=== PATIENT | male | born 1990 | race Caucasian/White ===

== ENCOUNTER 2020-12-05 18:46 | Emergency (ER) | payer OTHER, SELFPAY | END 2020-12-05 19:00 | disposition left against medical advice (07) | PROVIDERS: Emergency Provider Emergency Medicine | DX: M79.602 Pain in left arm (principal) ==

== ENCOUNTER 2023-10-01 22:43 | Emergency (ER) | payer OTHER, SELFPAY ==
--- NOTE | ~2023-10-01 | XR_ITS ---
EXAMINATION: XR CHEST CLINICAL INFORMATION: Cough. COMPARISON: Chest radiograph 12/09/2016. TECHNIQUE: 2 views of the chest were obtained. FINDINGS: New 0.8 cm nodular-like opacity projecting over the right upper lobe at the level of the posterior sixth rib. No focal consolidation, pleural effusion or pneumothorax. Normal appearance of the cardiomediastinal silhouette. No acute osseous findings. XR/XR chest 2V IMPRESSION: 1. New 0.8 cm nodular-like opacity projecting over the right upper lobe, possibly a granuloma. Recommend further evaluation with a nonemergent chest CT. 2. No focal consolidation, pleural effusion or pneumothorax. 3. No acutely displaced rib fractures.
[2023-10-01 22:47] VITALS: BP 151/91; PULSE 81; O2SAT 98
[2023-10-01 22:48] VITALS: BP 135/92; PULSE 90; RESP 20; TEMP 36.7; O2SAT 96; BMI 21.3
--- NOTE | 2023-10-01 23:58 | ED.URI ---
HPI - URI/Sore Throat General Chief Complaint: Upper Respiratory Symptoms Stated Complaint: flu like symptoms x1day Time Seen by Provider: 10/01/23 23:12 Source: patient Mode of arrival: ambulatory Limitations: no limitations History of Present Illness HPI Narrative: Patient is a 33-year-old male who presents emergency department for evaluation of shortness of breath and a cough. Reports onset 2 hours prior to arrival. He reports a remote history of childhood asthma, but has not bothered him in many years and he has not required any inhalers since then. He denies any new foods or potential environmental allergens that may have precipitated these symptoms. He does report having been around others who have been ill recently. He denies fevers, chills, sore throat, ear pain, chest pain, numbness or tingling of the extremities. Related Data Previous Rx's Medication Instructions Recorded albuterol sulfate 90 mcg/actuation 2 puff inhalation Q4-6H PRN 10/02/23 aerosol inhaler shortness of breath or wheezing #6.7 grams Allergies Allergy/AdvReac Type Severity Reaction Status Date / Time No Known Allergies Allergy Unverified 05/17/20 16:07 [No Known Allergies*] Review of Systems Review of Systems: Yes all other systems are reviewed and are negative PMFSH Past Medical History Attestation statement: The following information was validated with the patient. Source: old records reviewed Social History Social History Smoked in Last 30 Days: No Use of substances other than those prescribed or required for medical reasons: No Advance Directives: No Advance Directives Information Provided: Yes Physical Exam Vital Signs: Vital Signs: Last Vital Signs Temp 98.1 F 10/01/23 22:48 Pulse 90 10/01/23 22:48 Resp 20 10/01/23 22:48 BP 135/92 H 10/01/23 22:48 Pulse Ox 96 10/01/23 22:48 O2 Del Method Room Air 10/01/23 22:48 BMI result Body Mass Index 21.3 Appearance: Alert.?Oriented to person, place and time. No acute distress.?Normal affect. Eyes: Pupils equal, round and reactive to light.? ENT: TM normal bilaterally. Pharynx normal.?? Neck: Normal inspection.? Neck supple.??No cervical adenopathy CVS: Heart sounds normal. Normal heart rate and rhythm.? Pulses normal.?? Respiratory: No respiratory distress.? Lung sounds clear to auscultation bilaterally?? Abdomen: Soft and non-tender. Normoactive bowel sounds. Skin: Skin warm and dry.? Normal skin color.? ? Extremities: No lower extremity edema.? Neuro: Moves all extremities spontaneously. Sensation intact bilaterally. No motor deficits. Ambulates with normal steady gait. Medical Decision Making Medical Decision Making [facility] Narrative: Patient is a 33-year-old male presenting for evaluation of cough and shortness of breath. COVID-19 /influenza testing negative. At this time history and physical exam not consistent with ACS/PE/pneumonia. CXR with incidental finding of lung nodule, do not suspect this is the etiology for his symptoms today, discussed outpatient follow-up with PCP. Well-appearing, nontoxic, afebrile, no tachycardia or tachypnea/hypoxia. Speaking clear full sentences, ambulatory with steady gait. Albuterol inhaler as needed for shortness of breath. Discussed conservative treatment including rest, hydration, Tylenol/ibuprofen as needed for fever and body aches, saline nasal spray, humidifier, [id number] cold medication. Advised to follow-up with primary care provider as needed, discussed reasons to return back to the emergency department. All questions were answered. Patient discharged home in stable condition. Differential Diagnosis Differential Diagnoses: The differential diagnosis associated with the presentation includes ( See narrative above) Admission/Observation Consideration of admission/observation: Escalation of care including admission/observation considered ( see narrative above) Lab Data [facility] Lab Attestation statement: I reviewed the patient's lab results. ( see narrative above) Labs: Lab Results 10/01/23 Range/Units 23:27 COVID-19 ([facility]) Negative (Negative) COVID-19 Clin Com See Note Influenza Type A ([facility]) Negative (Negative) Influenza Type B ([facility]) Negative (Negative) Influenza A & B Note See Note Independent Interpretation I performed an independent interpretation of an: Plain X-Ray (Personally interpreted chest x-ray and agree with radiologist impression) Radiology Impression Discussion of test interpretation with radiology: I have reviewed the radiologist's reading. Radiologist Impression: XR/XR chest 2V IMPRESSION: 1. New 0.8 cm nodular-like opacity projecting over the right upper lobe, possibly a granuloma. Recommend further evaluation with a nonemergent chest CT. 2. No focal consolidation, pleural effusion or pneumothorax. 3. No acutely displaced rib fractures. Prescription Management I considered prescription management with: Pain Medication ( acetaminophen/ibuprofen) and Other (Albuterol inhaler) Discharge Plan Discharge Clinical Impression: Upper respiratory infection, Lung nodule Patient Disposition: Home, Self-Care Instructions: Upper Respiratory Infection (ED), Pulmonary Nodules (ED) Additional Instructions: You can take ibuprofen 200 mg, 3 tablets (600mg) every 6-8 hours as needed for pain, in addition to Tylenol 500 mg, 2 tablets (1,000mg) every 4-6 hours as needed for pain, but not to exceed 3 doses daily (3,000mg).? Use albuterol inhaler as needed for shortness of breath COVID-19 and flu testing today are negative, if your symptoms persist over the next couple of days that would consider retesting. The x-ray of your chest does not show any evidence of pneumonia. There was an incidental finding of a nodule in your lung, it is unlikely that your symptoms are due to this, however you should arrange a follow-up with primary care doctor for further evaluation, they may consider a CT scan of your chest. You may return back to emergency department any new worsening symptoms or concerns. Prescriptions: New albuterol sulfate 90 mcg/actuation HFA aerosol inhaler 2 puff inhalation Q4-6H PRN (Reason: shortness of breath or wheezing) Qty: 6.7 0RF Referrals: Physician,Unknown J [Primary Care Provider] -
[2023-10-02 00:06] LABS: COVID-19 Test Negative (Negative); IDNOW Serial# 08D9AD1C; IDNOW Serial# 152EDE1D; Influenza A Negative (Negative); Influenza B2 Negative (Negative)
[2023-10-02] MEDS: Albuterol Sulfate 90 MCG 8 GM INHALER 2 PUFF INHALE (00:31)
== END 2023-10-02 00:38 | disposition home or self-care (01) ==
PROVIDERS: Emergency Provider Student in an Organized Health Care Education/Training Program
DX: J06.9 Acute upper respiratory infection, unspecified (principal); R91.1 Solitary pulmonary nodule; Z11.52 Encounter for screening for COVID-19; R06.02 Shortness of breath; R05.9 Cough, unspecified
CPT/HCPCS: 71046; 87502; 87635; 99284

== ENCOUNTER 2023-10-02 22:32 | Emergency (ER) | payer OTHER, SELFPAY ==
[2023-10-02 23:43] VITALS: BP 130/74; PULSE 70; RESP 18; TEMP 36.9; O2SAT 98; BMI 21.7
--- NOTE | 2023-10-03 | ECG_ITS ---
Test Reason : SOB Blood Pressure : / mmHG Vent. Rate : 065 BPM Atrial Rate : 065 BPM P-R Int : 120 ms QRS Dur : 090 ms QT Int : 390 ms P-R-T Axes : 034 073 043 degrees QTc Int : 405 ms Normal sinus rhythm Normal ECG When compared with ECG of 25-MAY-2013 21:57, Nonspecific T wave abnormality, improved in Anterior leads Referred By: Kalpana Golden Electronically Signed By:CORIN MAYO MD
[2023-10-03 00:12] VITALS: BP 129/90; PULSE 64; RESP 20; TEMP 37; O2SAT 99
--- NOTE | 2023-10-03 00:33 | ED_ITS ---
HPI - URI/Sore Throat General Chief Complaint: Upper Respiratory Symptoms Stated Complaint: Reproductive cough, bronchitis Time Seen by Provider: 10/03/23 00:14 Source: patient and old records reviewed Mode of arrival: EMS Limitations: no limitations History of Present Illness HPI Narrative: 33 yo male with PMH of asthma here with URI symptoms and slight wheeze but asking for food no fevers he is not toxic and doesn't know how to use inhaler states there's just chemicals going into my mouth MD elicited complaint: cough Pertinent past history: asthma Onset (ago): day(s) (2) Consistency: intermittent Severity: mild Description of mucous: clear Able to tolerate fluids by mouth: Yes Exacerbating factors: other (cough) Relieving factors: nothing Associated symptoms: cough Treatments prior to arrival: other (tried INH) Related Data Previous Rx's Medication Instructions Recorded albuterol sulfate 90 mcg/actuation 2 puff inhalation Q4-6H PRN 10/02/23 aerosol inhaler shortness of breath or wheezing #6.7 grams albuterol sulfate 90 mcg/actuation 2 puff inhalation QID PRN 10/03/23 aerosol inhaler shortness of breath or wheezing #8.5 grams prednisone 20 mg tablet 40 mg (2 x 20 mg) PO DAILY 4 days 10/03/23 #8 tabs Allergies Allergy/AdvReac Type Severity Reaction Status Date / Time No Known Allergies Allergy Verified 10/02/23 23:42 [No Known Allergies*] Review of Systems Review of Systems: Constitutional : No Fever, No Chills ENT/Mouth : No Hoarseness, No sore throat, No Rhinorrhea Eyes: No Redness, No Discharge, No Vision Changes Cardiovascular : No Chest Pain, positive SOB, positive Dyspnea on Exertion, No Edema Respiratory : positive Cough, No Sputum, positive Wheezing, Gastrointestinal : No Nausea, No Vomiting, No Diarrhea, No abdominal Pain Genitourinary : No Dysuria, No Hematuria Musculoskeletal : No joint pain, No Myalgias Skin : No rash Neuro : No Weakness, No Numbness, No Headache Psych : No anxiety, depression Heme/Lymph: No Bruising, No Bleeding Endocrine : No Polyuria, No Polydipsia All other systems reviewed and are negative PMFSH Past Medical History Attestation statement: The following information was validated with the patient. Source: old records reviewed Medical History Asthma Social History Social History (Updated 10/03/23 @ 00:45 by Kalpana Golden DO) Patient Tobacco Use Status: Current everyday Tobacco user Physical Exam Vital Signs: Vital Signs: Last Vital Signs Temp 98.6 F 10/03/23 00:12 Pulse 64 10/03/23 00:12 Resp 20 10/03/23 00:12 BP 129/90 H 10/03/23 00:12 Pulse Ox 99 10/03/23 00:12 O2 Del Method Room Air 10/03/23 00:12 BMI result Body Mass Index 21.7 Appearance: Alert. Oriented X3. No acute distress. Had to show him how to use inhaler Eyes: Pupils equal, round and reactive to light. ENT: Pharynx normal. Neck: Normal inspection. Neck supple. CVS: Normal heart rate and rhythm. Pulses normal. Respiratory: No respiratory distress. Breath sounds very faint forced end exp wheeze Abdomen: Soft and nontender. Skin: Skin warm and dry. Normal skin color. Normal skin turgor. Extremities: No lower extremity edema. No calf ttp Neuro: Oriented X 3. No motor deficit. No sensory deficit. Medical Decision Making Medical Decision Making [facility] Narrative: 33 yo male with PMH of asthma here with c/o asthma and URI symptoms but not toxic asking for food he has forced end exp wheeze at this time I showed him how to use an INH and will start him on prednisone - he can be DC home with asthma exacerbation. He was educated in the ED Differential Diagnosis Differential Diagnoses: The differential diagnosis associated with the presentation includes asthma, viral syndrome Admission/Observation Consideration of admission/observation: Escalation of care including admission/observation considered no hypoxia just needed education guidance will start on prednisone Lab Data [facility] Lab Attestation statement: I reviewed the patient's lab results. just had negative flu and COVID on 10/01 Independent Interpretation I performed an independent interpretation of an: EKG Interpretation: Rate: 65 Rhythm: NSR [place]: normal Normal P waves. Normal KADE. Normal QRS complex. ST T wave : normal no ARIANNA qTC: 405 prior studies: no acute ischemia The study has been interpreted contemporaneously by me. . External Record Review External record reviewed: Inpatient record Prescription Management I considered prescription management with: Other Discharge Plan Discharge Clinical Impression: Asthma exacerbation Qualifiers: Asthma severity: mild Asthma persistence: persistent Qualified Code(s): J45.31 - Mild persistent asthma with (acute) exacerbation Patient Disposition: Home, Self-Care Instructions: Asthma (ED) Additional Instructions: continue inhaler avoid smoke return for fevers worsening symptoms or any other concerns. flu covid and chest xray were normal Prescriptions: New prednisone 20 mg tablet 40 mg PO DAILY 4 Days Qty: 8 0RF albuterol sulfate 90 mcg/actuation HFA aerosol inhaler 2 puff inhalation QID PRN (Reason: shortness of breath or wheezing) Qty: 8.5 0RF No Action albuterol sulfate 90 mcg/actuation HFA aerosol inhaler 2 puff inhalation Q4-6H PRN (Reason: shortness of breath or wheezing) Qty: 6.7 0RF
--- NOTE | 2023-10-03 00:39 | MHC.EDTECH ---
This Tech assumed care of this pt upon arrival. Pt changed into a hospital gown and placed on quality assurance monitor final. EKG completed and handed to provider
[2023-10-03] MEDS: predniSONE 20 MG TABLET 40 MG PO (01:06)
== END 2023-10-03 01:15 | disposition home or self-care (01) ==
PROVIDERS: Emergency Provider Emergency Medicine
DX: J45.31 Mild persistent asthma with (acute) exacerbation (principal); F17.210 Nicotine dependence, cigarettes, uncomplicated; Z71.6 Tobacco abuse counseling
CPT/HCPCS: 93005; 99283; 99285

== ENCOUNTER → 2023-10-03 00:25 | Outpatient (BNV) | payer OTHER, SELFPAY | PROVIDERS: Emergency Provider Emergency Medicine; Visit Provider Internal Medicine Cardiovascular Disease | DX: R06.02 Shortness of breath (principal) | CPT/HCPCS: 93010 ==